=== PATIENT | female | born 1935 | race Caucasian/White ===

== ENCOUNTER 2016-09-04 09:59 | Day surgery (SDC) | payer MEDICARE, OTHER ==
[~2016-09-04] VITALS: Ht 167.6 cm; Wt 68.0 kg
[2016-09-04] MEDS ORDERED: NORCO 7.5/325 T1 TA1 PO (10:46)
[2016-09-04] MEDS ORDERED: BRINTELLIX10 MG PO (10:48)
[2016-09-04] MEDS ORDERED: MOBIC7.5 MG PO (10:48)
[2016-09-04] MEDS ORDERED: BACLOFEN10 MG PO (10:49)
[2016-09-04] MEDS ORDERED: TOPAMAX50 MG PO (10:49)
[2016-09-04] MEDS ORDERED: ASCORBIC ACID500 MG PO (10:50)
[2016-09-04] MEDS ORDERED: OMEPRAZOLE20 M1 PO (10:50)
[2016-09-04] MEDS ORDERED: ICAPS AREDS1 TAB.SA PO (10:51)
[2016-09-04] MEDS ORDERED: VITAMIN D5000 UNIT PO (10:51)
[2016-09-04] MEDS ORDERED: ACTIVELLA 1 MG-1 TAB PO (10:51)
[2016-09-04 10:54] VITALS: BP 152/90; Ht 167.6 cm; Wt 68.0 kg
[2016-09-04 11:18] LABS: BASOPHILS 0.3 % (0.0-2.0); EOSINOPHILS 3.3 % (0-7); HEMATOCRIT 40.8 % (36.0-48.0); HEMOGLOBIN 13.4 g/dL (12-16); IMMATURE GRANULOCYTES 0.3 % (0-5); LYMPHOCYTES 29.9 % (15-50); MCH 32.6 pg (26.0-34.0); MCHC 32.8 g/dL (31.0-37.0); MCV 99.3 fL (80.0-100.0); MEAN PLATELET VOLUME 10.5 fL (7.4-10.4); MONOCYTES 7.3 % (2-11); NEUTROPHILS 58.9 % (40-80); PLATELET COUNT 187 10x3/uL (130-400); RBC 4.11 10x6/uL (4.00-5.40); RDW 14.2 % (11.5-14.5)
[2016-09-04 11:36] LABS: ANION GAP 15.2 mmol/L (8-16); CARBON DIOXIDE 23.8 mmol/L (21.0-32.0)
[2016-09-04 11:42] LABS: APTT 25.8 SECONDS (22.8-39.4); INR 1.05 (0.85-1.17); PROTIME 13.6 SECONDS (11.6-15.0)
[2016-09-04] MEDS ORDERED: PERCOCET 10/3251 TA1 PO (15:08)
--- NOTE | 2016-09-04 19:48 | NUR ---
1540 BACK FROM LEFT SHOULDER SURGERY WITH A BLOCK LEFT ARM DRESSING C/D/I ICE APPLIED ARM IN SLING.
--- NOTE | 2016-09-04 19:56 | NUR ---
1640 NO COS OF PAIN. UP WITH ASSISTANCE AND VOIDED. WENT OVER DISCHARGE INSTRUCTIONS GAVE SCRIPT BLOCK INFORMATION PENDULUM EXERCISES POST CARE SHEET FOR SHOULDER AND PATIENT AND SPOUSE VERBALLY UNDERSTANDS.
--- NOTE | 2016-09-04 19:58 | NUR ---
1655 DISCHARGED TO HOME VIA W/C WITH SPOUSE.
--- NOTE | 2016-09-04 19:58 | NUR ---
1650 ASSISTED WITH DRESSING.
--- NOTE | 2016-09-08 14:52 | OP ---
PATIENT NAME: RENAE VICTORIA MEDICAL RECORD: [id number] :33 LOCATION:.FORMERLY [facility] [place] ADMISSION DATE: SURGEON: DESHAUN OH, JAMES HARTMAN DATE OF OPERATION: 09/04/2016 PREOPERATIVE DIAGNOSIS: Recurrent rotator cuff tear of the left shoulder. POSTOPERATIVE DIAGNOSES: 1. Recurrent rotator cuff tear of the left shoulder. 2. Impingement and acromioclavicular arthritis. PROCEDURES: 1. Arthroscopic rotator cuff repair revision. 2. Arthroscopic subacromial decompression, acromioplasty and bursectomy. 3. Arthroscopic distal clavicle excision done through separate arthroscopic portal -- 1 cm. SURGEON: James Meade MD. ANESTHESIA: General. INTRAOPERATIVE COMPLICATIONS: None. SUMMARY OF PATHOLOGIC FINDINGS: Ironically, the previously placed suture anchors had failed to result in healing of the rotator cuff and there was a full-thickness tear of the rotator cuff at the supraspinatus tendinous footprint. Furthermore, it does not appear that there had been a substantial decompression. In fact, the tip of the acromion was still intact and the distal clavicle was arthritic. 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 OPERATIVE SUMMARY IN DETAIL: After obtaining the appropriate preoperative orthopedic surgery consent as well as anesthetic consultation, evaluation and clearance, the patient was brought to the operating room and placed on the operating table in supine position. After general laryngeal mask was administered, the patient was placed in a right lateral decubitus position. All pressure points were well padded to include down leg peroneal pad as well as axillary roll. The patient was held firmly to the operating table using the vacuum pack suction system. The patient's left upper extremity and shoulder were prepped and draped in routine sterile fashion. The arm was held in the [employer] traction boom at 30 degrees of forward flexion, 30 degrees of abduction with 10 pounds of traction laterally. Arthroscopy was established in the glenohumeral joint from a posterior portal. Anterior portal was established in the anterior safe interval. Diagnostic arthroscopy did reveal the above findings. Gentle chondroplasty was done to the humeral head, but one area of chondral flap had developed. This was taken back to smooth chondral surface. Gentle debridement was done for some mild labral tearing. A transarthroscopic rotator cuff portal was created through which the supraspinatus tendinous footprint was decorticated and torn fibers of the rotator cuff were taken down along with the previously placed suture. The attention was then turned to the subacromial space. While in the subacromial space, the patient had substantial amount of scar tissue. Large resector was utilized to take down all the scar tissue and the acromioplasty was performed using a 5-0 barrel syl. Distal clavicle was taken down using the 5-0 barrel syl through a separate anterior arthroscopic portal. Having completed this, attention was returned to the OPERATIVE REPORT [id number] RENAE VICTORIA rotator cuff. Further decortication was followed by passing of a FiberTape in an inverted mattress fashion to the rotator cuff tear. This was then anchored laterally with a 5.5 SwiveLock from [employer]. Having completed this, arthroscopy portals were closed in routine interrupted fashion using 4-0 Prolene. Sterile dressings were applied. The patient was awakened, taken to recovery room in stable condition. All final needle and sponge counts were correct. TRANSINT:[id number] Voice Confirmation ID: [id number] DOCUMENT ID: [id number] DESHAUN OH, JAMES HARTMAN at 1452 CC: [id number] DICTATION DATE: 09/04/16 151 SUPERVISOR LOOPING: 09/04/162114 [facility] 09/04/16 [facility] [address] [place] [address]
== END 2016-09-04 16:55 | disposition home or self-care (01) ==
LOC: D.OPS 09:59 → D.PAN 12:45 → D.OPS 13:15
PROVIDERS: Anesthesiology
DX: M75.122 Complete rotator cuff tear or rupture of left shoulder, not specified as traumatic (principal); M75.42 Impingement syndrome of left shoulder; M13.812 Other specified arthritis, left shoulder; M94.212 Chondromalacia, left shoulder

== ENCOUNTER 2016-10-13 07:38 | Day surgery (SDC) | payer MEDICARE, OTHER ==
[~2016-10-13] VITALS: Ht 167.6 cm; Wt 68.0 kg
--- NOTE | ~2016-10-13 | OP ---
PATIENT NAME: RENAE VICTORIA MEDICAL RECORD: [id number] :34 LOCATION:D.OPS ADMISSION DATE: SURGEON: JAMES MEADE MD DATE OF OPERATION: 10/13/2016 PREOPERATIVE DIAGNOSIS: Capsulitis of the left shoulder. POSTOPERATIVE DIAGNOSIS: Capsulitis of the left shoulder. PROCEDURE: Manipulation under TIVA anesthesia. SURGEON: James Meade M.D. ANESTHESIA: TIVA. INTRAOPERATIVE COMPLICATIONS: None. SUMMARY OF PATHOLOGIC FINDINGS: The patient has extreme adhesive capsulitis consistent with the preoperative diagnosis. OPERATIVE SUMMARY IN DETAIL: After obtaining the appropriate preoperative orthopedic surgery consent as well as anesthetic consultation, evaluation and clearance, the patient was brought to the operating room and placed on the operating table in supine position. After adequate TIVA anesthesia was administered, the scapula was stabilized and the shoulder was manipulated first in abduction followed by external rotation, internal rotation to forward flexion. Good release was achieved. The patient was awakened and taken back to outpatient in stable condition. TRANSINT:[id number] Voice Confirmation ID: [id number] DOCUMENT ID: [id number] JAMES MEADE MD CC: [id number] DICTATION DATE: 10/13/166 ELECTRICIAN POWERHOUSE: 10/13/16 1622 [facility] 10/13/16 [id number] [place] [address]
[~2016-10-13 07:38] MED LIST: ACTIVELLA 1 MG-1 TAB PO; ASCORBIC ACID500 MG PO; BACLOFEN10 MG PO; BRINTELLIX10 MG PO; ICAPS AREDS1 TAB.SA PO; MOBIC7.5 MG PO; NORCO 7.5/325 T1 TA1 PO; OMEPRAZOLE20 M1 PO; PERCOCET 10/3251 TA1 PO; TOPAMAX50 MG PO; VITAMIN D5000 UNIT PO
[2016-10-13 09:44] VITALS: BP 135/65; Ht 167.6 cm; Wt 68.0 kg
[2016-10-13 09:54] LABS: HEMOGLOBIN 13.4 g/dL (12-16); LYMPHOCYTES 30.2 % (15-50); MCH 33.1 pg (26.0-34.0); MCHC 33.5 g/dL (31.0-37.0); MCV 98.8 fL (80.0-100.0); NEUTROPHILS 58.9 % (40-80); PLATELET COUNT 177 10x3/uL (130-400); RBC 4.05 10x6/uL (4.00-5.40); RDW 13.9 % (11.5-14.5); WBC 7.1 10x3/uL (4.8-10.8)
[2016-10-13 10:14] LABS: ANION GAP 14.9 mmol/L (8-16); APTT 24.2 SECONDS (22.8-39.4); CALCIUM 8.7 mg/dL (8.5-10.1); CARBON DIOXIDE 23.9 mmol/L (21.0-32.0); INR 1.08 (0.85-1.17); POTASSIUM - SERUM 3.8 mmol/L (3.5-5.1); PROTIME 13.9 SECONDS (11.6-15.0)
--- NOTE | 2016-10-13 12:09 | NUR ---
PATIENT STAYED ON STRETCHER FOR PROCEDURE, EDEL.
[2016-10-13] MEDS ORDERED: HYDROCODONE-APA1 TAB PO (12:17)
--- NOTE | 2016-10-13 15:21 | NUR ---
1220-RECEIVED PT FROM OR AWAKE AND ALERT VSS. NO DISTRESS POX 97% ON ROOM AIR. LEFT ARM IN SLING AND ARM IS BLOCKED, PT WITH BRISK CAP REFILL 1250-PT DOING WELL. DENIES ANY N/V FULL LIQUID TRAY GIVEN 1300-REPORT GIVEN TO JAYJAY
--- NOTE | 2016-10-13 15:29 | NUR ---
0785 DISCHARGE INSTRUCTIONS REVIEWED WITH PATIENT; WILL GO TO PT IN [place] TODAY; VERBALIZED UNDERSTANDING
== END 2016-10-13 13:35 | disposition home or self-care (01) ==
LOC: D.OPS 07:38 → D.PAN 16:15
PROVIDERS: Anesthesiology
DX: M75.02 Adhesive capsulitis of left shoulder (principal)